=== PATIENT | female | born 1955 | race Caucasian/White ===

== ENCOUNTER → 2016-11-21 | Outpatient (CLI) | payer BC | END | disposition home or self-care (01) | LOC: CDC 09:25 | DX: Z01.810 Encounter for preprocedural cardiovascular examination (principal); N83.299 Other ovarian cyst, unspecified side | CPT/HCPCS: 93000 ==

== ENCOUNTER 2016-12-09 10:33 | Inpatient (IN) | payer BC, OTHER ==
[~2016-12-09] VITALS: Ht 157.5 cm; Wt 73.0 kg
[~2016-12-09 10:33] MED LIST: DAILY MULTIPLE1 EACH PO; KRILL OIL500 MG PO; ZYRTEC10 M3 PO
[2016-12-09 11:51] VITALS: BP 129/71
[2016-12-09 17:55] VITALS: BP 102/57
[2016-12-09 19:46] LABS: HEMATOCRIT 36.2 % (36.0-46.0); MCH 32.9 PG (29.0-34.0); MCHC 35.1 G/DL (30.0-36.0); MCV 93.8 FL (83-99); MEAN PLAT.VOLUME 10.2 uM^3 (9.5-12.4); PLATELET COUNT 201 K/uL (156-360); RBC DIS.WIDTH-CV 12.5 % (11.8-14.6); RBC DIS.WIDTH-SD 43.2 % (39-53); RED BLOOD COUNT 3.86 M/uL (3.80-5.20); WHITE BLOOD COUNT 10.5 K/uL (4.1-10.2)
[2016-12-09 20:04] VITALS: BP 97/55
[2016-12-09 20:09] LABS: ANION GAP 8 MEQ/L (2-14); CHLORIDE 108 MEQ/L (99-109); GFR ESTIMATE (CALCULATED) > 59 mL/min/; POTASSIUM 4.1 MEQ/L (3.7-5.4); SAMPLE HEMOLYSIS CHECK 0; SAMPLE ICTERIC CHECK 0; SAMPLE LIPEMIA CHECK 0; SODIUM 137 MEQ/L (136-147); UREA NITROGEN (BUN) 14 mg/dL (9-23)
[2016-12-09 20:21] LABS: GLUCOSE 478 mg/dL (70-99)
[2016-12-09 22:03] LABS: GLUCOSE 196 mg/dL (70-99)
[2016-12-10 00:39] VITALS: BP 110/55
[2016-12-10 03:39] VITALS: BP 107/59
[2016-12-10 06:40] LABS: HEMATOCRIT 35.6 % (36.0-46.0); MCH 32.1 PG (29.0-34.0); MCHC 34.8 G/DL (30.0-36.0); MCV 92.2 FL (83-99); MEAN PLAT.VOLUME 10.2 uM^3 (9.5-12.4); PLATELET COUNT 214 K/uL (156-360); RBC DIS.WIDTH-SD 40.7 % (39-53); RED BLOOD COUNT 3.86 M/uL (3.80-5.20); WHITE BLOOD COUNT 13.1 K/uL (4.1-10.2)
[2016-12-10 07:03] LABS: ANION GAP 6 MEQ/L (2-14); CHLORIDE 102 MEQ/L (99-109); GFR ESTIMATE (CALCULATED) > 59 mL/min/; GLUCOSE 141 mg/dL (70-99); POTASSIUM 4.3 MEQ/L (3.7-5.4); SAMPLE HEMOLYSIS CHECK 0; SAMPLE ICTERIC CHECK 0; SAMPLE LIPEMIA CHECK 0; SODIUM 133 MEQ/L (136-147); UREA NITROGEN (BUN) 11 mg/dL (9-23)
[2016-12-10 07:35] VITALS: BP 119/63
[2016-12-10 15:53] VITALS: BP 119/58
[2016-12-10 23:10] VITALS: BP 148/67
[2016-12-11 06:51] LABS: HEMATOCRIT 37.1 % (36.0-46.0); MCH 32.6 PG (29.0-34.0); MCHC 34.5 G/DL (30.0-36.0); MCV 94.4 FL (83-99); MEAN PLAT.VOLUME 10.8 uM^3 (9.5-12.4); PLATELET COUNT 192 K/uL (156-360); RBC DIS.WIDTH-CV 12.7 % (11.8-14.6); RBC DIS.WIDTH-SD 43.8 % (39-53); RED BLOOD COUNT 3.93 M/uL (3.80-5.20); WHITE BLOOD COUNT 10.4 K/uL (4.1-10.2)
[2016-12-11 07:34] LABS: ANION GAP 7 MEQ/L (2-14); CHLORIDE 107 MEQ/L (99-109); GFR ESTIMATE (CALCULATED) > 59 mL/min/; POTASSIUM 4.4 MEQ/L (3.7-5.4); SAMPLE HEMOLYSIS CHECK 2; SAMPLE ICTERIC CHECK 0; SAMPLE LIPEMIA CHECK 0; UREA NITROGEN (BUN) 13 mg/dL (9-23)
[2016-12-11 07:39] LABS: GLUCOSE 94 mg/dL (70-99); SODIUM 140 MEQ/L (136-147)
[2016-12-11 08:20] VITALS: BP 136/65
[2016-12-11] MEDS ORDERED: TRAMADOL HCL50 MG PO (09:10)
== END 2016-12-11 09:33 | disposition home or self-care (01) | DRG 743 ==
LOC: 2EAST 10:33 → 2SOUTH 10:33 → 2EAST 17:28
PROVIDERS: Obstetrics & Gynecology Gynecologic Oncology
DX: D27.1 Benign neoplasm of left ovary (principal); Z80.0 Family history of malignant neoplasm of digestive organs; Z87.891 Personal history of nicotine dependence; Z80.41 Family history of malignant neoplasm of ovary; Z80.3 Family history of malignant neoplasm of breast
CPT/HCPCS: 36415; 80048; 84999; 85027; 86900; 86901; 86920; 88305; 88307; J0131; J1100; J1170; J1580; J2250; J2405; J2710; J3010; J7050; S0030